=== PATIENT | female | born 1970 | race Caucasian/White ===

== ENCOUNTER → 2021-02-19 16:40 | Outpatient (BNVA) | payer OTHER, SELFPAY | PROVIDERS: Family Provider Nurse Practitioner; PCP Nurse Practitioner; Visit Provider Nurse Practitioner Family | DX: S61.233A Puncture wound without foreign body of left middle finger without damage to nail, initial encounter (principal); X58.XXXA Exposure to other specified factors, initial encounter | CPT/HCPCS: 73140 ==

== ENCOUNTER 2022-10-12 07:09 | Emergency (ER) | payer OTHER, SELFPAY ==
[2022-10-12] VITALS (47 sets, daily range): BP systolic 131–210; BP diastolic 49–107; PULSE 71–102; RESP 13–30; TEMP 37.1; O2SAT 95–99; BMI 32.8
--- NOTE | 2022-10-12 07:38 | CT_ITS ---
WS: [id number] CT HEAD NONCONTRAST HISTORY: new onset dizziness TECHNIQUE: Contiguous axial imaging performed through the brain in 2.5 mm imaging. Bone and soft tiss ue windows. Sagittal and coronal reformats reviewed. All CT scans at [facility] use at least one of these dose optimization techniques: automated exposure control; mA and/or kV adjustment per pa tient size (includes targeted exams where dose is matched to clinical indication); or iterative recon struction. DLP: 994.44 mGy.cm COMPARISON: None available. No acute intracranial hemorrhage, midline shift or mass effect. No significant atrophy. No volume loss or prior infarct. Very mild small vessel ischemic type changes . Ventricles: Normal size with no hydrocephalus. No inferior displacement of cerebellar tonsils. Paranasal sinuses: Very mild mucoperiosteal thickening RIGHT ethmoid air cells. Mastoid air cells: Well pneumatized. Calvarium and scalp: Skull is intact with no soft tissue edema or swelling. CT/CT head wo con* 69500 IMPRESSION: 1. No acute intracranial hemorrhage or edema. 2. Very mild small vessel ischemic disease.
--- NOTE | 2022-10-12 07:41 | ED_ITS ---
HPI - Dizziness General: Chief Complaint: Dizziness Stated Complaint: balance off unable to stand on own Time Seen by Provider: 10/12/22 07:27 Source: patient and family Mode of arrival: wheelchair Limitations: no limitations History of Present Illness: HPI Narrative: Patient presents to the emergency department today brought by her daughter for evaluation treatment of dizziness. Patient reports a sudden onset of dizziness yesterday evening. She states she had to sit down to keep herself from falling. Patient thought she would try and go to bed and noted difficulty getting to her bedroom as she was falling into the hopper and had an ataxic gait. Patient states she did go to sleep but when she woke up this morning, attempted to get out of bed and again was unable to stand or walk due to her dizziness. She called for her daughter who brings her in this morning. Patient is denying chest pains or shortness of breath. She denies any severe headache but feels like the upper part of her neck is sore (like she slept on it wrong . She states she has not been ill recently with any vomiting, diarrhea, or fevers. She does feel her vision is slightly off and daughter feels like the patient's speech is slurred. Patient denies any previous issues with dizziness or vertigo. Patient denies any known previous history of heart disease or stroke. Patient reports she gets wellness checks through her employer and indicated no abnormal findings in her cholesterol or screening examination approximately 6 months ago. Denies chiropractic adjustments. Review of Systems General: Reports: 10 or more systems reviewed and unremarkable except in HPI and below [facility] ED PFSH: Medical History Foreign body of left middle finger Puncture wound of left middle finger Physical Exam HENMT: COMMON NORMALS: normocephalic, atraumatic, hearing grossly normal bilaterally, moist oral mucous membranes and dentition normal HEAD & SCALP: normocephalic and atraumatic Eye: OTHER: PERRLA. EOMs intact. No nystagmus with testing of the EOMs. No reported dizziness with peripheral gaze hold. Neck/C-Spine: OTHER: Patient is demonstrating range of motion independently with her neck without signs of discomfort. She is bringing chin to chest and turns her head side to side on exam. Resp: COMMON NORMALS: normal respiratory effort, No use of accessory muscles and clear to auscultation bilaterally AUSCULTATION: clear to auscultation bilaterally Cardio: COMMON NORMALS: regular rate and regular rhythm RATE: regular rate RHYTHM: regular rhythm OTHER: Patient with acutely elevated blood pressure readings. Patient with BP 200s over 110 while I was in the room. GI: OTHER: Normoactive bowel sounds without tenderness on palpation. Abdomen is soft. Extremity: NARRATIVE EXTREMITY EXAM: Patient is moving her upper and lower extremities independently in the bed however, patient requires assistance with standing and ambulation from wheelchair to the bed upon arrival to her room. Neuro: OTHER: Patient is able to answer her own history. She is concise and appropriate in her responses but, I do agree that the patient's speech sounds slurred-her tongue sounds almost thickened when she talks. Cranial nerves grossly intact with symmetrical smile and midline tongue. Patient had strong and equal wirer helper strength to the upper extremities with equal resistance strength noted. Patient was able to do nose to finger touch without difficulty. Psych: COMMON NORMALS: mental status grossly normal, Normal thought process present, cooperative and normal affect THOUGHT PROCESS: Normal thought p rocess present Course Vital Signs: Vital signs: Vital Signs Temperature 98.7 F 10/12/22 07:24 Pulse Rate 92 10/12/22 11:05 Respiratory Rate 23 H 10/12/22 11:05 Blood Pressure 131/81 10/12/22 11:05 Pulse Oximetry 97 10/12/22 11:05 Oxygen Delivery Me thod Room Air 10/12/22 11:00 MDM - Dizziness Medical Decision Making Upon my initial assessment of the patient I did go speak to Dr. Weeks regarding my concerns for the patient's new onset dizziness, continued dizziness, concern for slurred speech, and elevated blood pressure readings. He recommended proceeding on with CT of the head followed by CTA of the head and neck if head CT is clear and providing a 10 mg dose of labetalol. Patient's blood pressure improved with this medication. CT examination of the head was negative as well as the CTA for concerns of clot or bleeds. Patient's thyroid was found to be enlarged but, TSH was normal. Patient also had 4+ glucose in her urine but no ketones. Patient was given meclizine and, was ambulated in the department with noticeable improvement of ambulation. Discussed with the patient my recommendation for follow-up to discuss her acutely elevated blood pressure readings-this may actually be a chronic thing for her, to discuss her elevated blood sugar levels and 4+ glucose as again, this may be a more chronic issue for her and also referred her on to endocrinology for her enlarged thyroid. Discussed treatment with meclizine for episodes of dizziness but, patient was given very strict return precautions for change or worsening in her condition for which she needs to return to the emergency department immediately. Lab Data 10/12/22 07:45 10/12/22 07:[address] 10/12/22 07:38 IMPRESSION: 1. No acute intracranial hemorrhage or edema. 2. Very mild small vessel ischemic disease. Head/Neck CTA 10/12/22 08:32 IMPRESSION: 1. No significant carotid artery stenosis or plaque. 2. Unremarkable [place] of [place]. 3. Marked bilateral enlarged thyroid. Differential includes multinodular goiter, Graves' disease and Frank's disease. Recommend evaluation by endocrinology. Laboratory Results WBC 10.5 10^3/uL (4.0-10.0) H 10/12/22 07:45 RBC 4.93 10^6/uL (4.1-5.3) 10/12/22 07:45 Hgb 15.7 g/dL (11.5-15.3) H 10/12/22 07:45 Hct 45.1 % (37.0-47.0) 10/12/22 07:45 MCV 91.5 fl (81-99) 10/12/22 07:45 MCH 31.8 pg (28.0-34.0) 10/12/22 07:45 MCHC 34.8 g/dL (30.0-36.0) 10/12/22 07:45 RDW 11.7 % (12.1-15.1) L 10/12/22 07:45 Plt Count 209 10^3/cmm (130-400) 10/12/22 07:45 MPV 9.1 fL (7.4-10.4) 10/12/22 07:45 Neut % (Auto) 79.2 % 10/12/22 07:45 Lymph % (Auto) 13.9 % 10/12/22 07:45 [place] % (Auto) 4.8 % 10/12/22 07:45 Eos % (Auto) 1.0 % 10/12/22 07:45 Baso % (Auto) 0.8 % 10/12/22 07:45 Neut # (Auto) 8.34 10^3/uL (1.8-7.7) H 10/12/22 07:45 Lymph # (Auto) 1.5 10^3/uL (0.8-4.8) 10/12/22 07:45 [place] # (Auto) 0.5 10^3/uL (0.2-0.9) 10/12/22 07:45 Eos # (Auto) 0.1 10^3/uL (0.0-0.8) 10/12/22 07:45 Baso # (Auto) 0.1 10^3/uL (0.0-0.1) 10/12/22 07:45 Nucleated RBC % (auto) 0 % 10/12/22 07:45 Nucleated RBCs # 0.0 /100WBC 10/12/22 07:45 PT 13.10 SECONDS (12.1-14.9) 10/12/22 07:45 INR 0.96 (0.8-1.2) 10/12/22 07:45 APTT 27.7 SECONDS (23.9-36.7) 10/12/22 07:45 Sodium 135 mmol/L (136-145) L 10/12/22 07:45 Potassium 3.9 mmol/L (3.5-5.1) 10/12/22 07:45 Chloride 98 mmol/L (98-107) 10/12/22 07:45 Carbon Dioxide 25 mmol/L (22-29) 10/12/22 07:45 Anion Gap 15.9 (5-19) 10/12/22 07:45 BUN 9 mg/dL (6-20) 10/12/22 07:45 Creatinine 0.6 mg/dL (0.5-0.9) 10/12/22 07:45 GFR Calculation 104.6 mL/min (90-130) 10/12/22 07:45 Glucose 229 mg/dL (65-115) H 10/12/22 07:45 Calculated Osmolality 286 mOsm/kg (285-295) 10/12/22 07:45 Calcium 8.9 mg/dL (8.5-10.5) 10/12/22 07:45 Total Bilirubin 0.3 mg/dL (0.15-1.2) 10/12/22 07:45 AST 16 U/L (0-32) 10/12/22 07:45 ALT 15 U/L (0-33) 10/12/22 07:45 Alkaline Phosphatase 74 U/L (35-105) 10/12/22 07:45 Troponin T Baseline 6 ng/L (0-10) 10/12/22 07:45 Troponin T 120 Minute 6.00 ng/L (0-10) 10/12/22 10:18 Delta Troponin T 0 ABS# (0-10) 10/12/22 10:18 Total Protein 7.4 g/dL (6.6-8.7) 10/12/22 07:45 Albumin 4.4 g/dL (3.5-5.2) 10/12/22 07:45 Globulin 3.0 g/dL (1.3-4.6) 10/12/22 07:45 TSH 3.08 uIU/mL (0.27-4.20) 10/12/22 07:45 Urine Color Straw (Yellow) 10/12/22 08:05 Urine Appearance Clear (CLEAR) 10/12/22 08:05 Urine pH 5 (5-7) 10/12/22 08:05 Ur Specific [place] 1.010 (1.005-1.030) 10/12/22 08:05 Urine Protein Neg (Negative) 10/12/22 08:05 Urine Glucose (UA) 4+ (Normal) H 10/12/22 08:05 Urine Ketones Negative (Negative) 10/12/22 08:05 Urine Blood Neg (Negative) 10/12/22 08:05 Urine Nitrate Negative (Negative) 10/12/22 08:05 Urine Bilirubin Neg (Negative) 10/12/22 08:05 Urine Urobilinogen Norm mg/dL (Negative) 10/12/22 08:05 Ur Leukocyte Esterase Negative (Negative) 10/12/22 08:05 Urine Opiates Screen Positive ng/mL (Negative) H 10/12/22 08:05 Ur Barbiturates Screen Negative ng/mL (Negative) 10/12/22 08:05 Ur Phencyclidine Scrn Negative ng/mL (Negative) 10/12/22 08:05 Ur Amphetamines Screen Negative ng/mL (Negative) 10/12/22 08:05 U Benzodiazepines Scrn Negative ng/mL (Negative) 10/12/22 08:05 Urine Cocaine Screen Negative ng/mL (Negative) 10/12/22 08:05 U Marijuana (THC) Screen Negative ng/mL (Negative) 10/12/22 08:05 Discharge Plan Discharge Patient Disposition: Home Clinical Impression: Dizziness, Elevated blood sugar level, Enlarged thyroid gland, Elevated blood pressure reading without diagnosis of hypertension Condition: Stable Prescriptions: New meclizine 12.5 mg tablet 25 mg PO TID PRN (Reason: dizziness) Qty: 36 0RF Discharge Orders: Discharge ED (Routine); Ordered 10/12/22 Ordered By: Sita Marin Referrals: Janice Whiteside FNP [Primary Care Provider] - Discharge Diet: Usual diet Discharge Activity: Increase activity as tolerated Patient Instructions: Dizziness (ED) Activity Restrictions/Additional Instructions: Your evaluation today included neurological, cardiac, thyroid, infection, and anemic potential causes for your new onset dizziness. We are happy to report that the CT examination including concerns for clot in your brain and carotids was negative today. Cardiac evaluation revealed no acute concerns. The CT examination did find noticeable enlargement of your thyroid gland however, your thyroid hormone is within normal limits at this time. You showed no signs of any infection and no signs of anemia. At this time, we are referring you for follow-up with a primary care doctor as you did present with elevated blood pressure readings and would benefit from continued monitoring of your blood pressure. You also had some elevated blood sugar readings but, would need continued monitoring before a diagnosis of diabetes could be made. I have also referred you on to rheumatology for the enlargement of your thyroid found on the CT scan. At this time, we will treat you with medication to help with dizziness symptoms. Take this medication 3 times a day or as needed throughout the day for symptoms of dizziness. However, you need to return to the emergency department if you develop the most severe headache of your life, loss of visual faust, one-sided facial drooping or one-sided body weakness or numbness, sudden chest pains with or without radiating into the left jaw and arm, or any shortness of breath. Stand Alone Forms: Work/School Release Coding Level of Care Code ED Appellate Conferee for Carrillo Ramsay
--- NOTE | 2022-10-12 07:43 | PC.PHAR ---
pt states she takes no rxs or otc medications
[2022-10-12] MEDS: labetalol 5 mg/mL SDV 20mL 10 MG IVP (07:53)
--- NOTE | 2022-10-12 07:55 | ECG_ITS ---
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 Measurements Intervals [place] Rate: 93 P: 52 ID: [id number] QRS: 19 QRSD: 86 T: 51 QT: 340 QTc: 423 Interpretive Statements SINUS RHYTHM POSSIBLE LEFT ATRIAL ENLARGEMENT [-0.1mV P-WAVE IN V1/V2] No previous ECG available for comparison Electronically Signed On 10-13-2022 0:08:46 CDT by Giovani Cee M.D. [email or web address] g.h. bing, md, cancer [email or web address]/store/OM/[id number]
[2022-10-12 07:58] LABS: Basophils # 0.1 10^3/uL (0.0-0.1); Basophils % 0.8 %; Eosinophils # 0.1 10^3/uL (0.0-0.8); Hematocrit 45.1 % (37.0-47.0); Hemoglobin 15.7 g/dL (11.5-15.3); Lymphocytes # 1.5 10^3/uL (0.8-4.8); Lymphocytes % 13.9 %; Mean Corpuscular HGB Conc 34.8 g/dL (30.0-36.0); Mean Corpuscular Hemoglobin 31.8 pg (28.0-34.0); Mean Corpuscular Volume 91.5 fl (81-99); Mean Platelet Volume 9.1 fL (7.4-10.4); Monocytes # 0.5 10^3/uL (0.2-0.9); Monocytes % 4.8 %; Neutrophils # 8.34 10^3/uL (1.8-7.7); Neutrophils % 79.2 %; Nucleated Red Blood Cells % 0 %; Platelet Count 209 10^3/cmm (130-400); Red Blood Count 4.93 10^6/uL (4.1-5.3); Red Cell Distribution Width 11.7 % (12.1-15.1); White Blood Count 10.5 10^3/uL (4.0-10.0)
[2022-10-12 08:10] LABS: Add Urine Microscopic? NO; Charge for UA Resulting for Rev
[2022-10-12 08:11] LABS: INR 0.96 (0.8-1.2)
[2022-10-12 08:14] LABS: Partial Thromboplastin Time 27.7 SECONDS (23.9-36.7)
[2022-10-12 08:20] LABS: Troponin(5th) Baseline 6 ng/L (0-10)
[2022-10-12 08:30] LABS: Alanine Aminotransferase 15 U/L (0-33); Albumin Level 4.4 g/dL (3.5-5.2); Alkaline Phosphatase 74 U/L (35-105); Anion Gap 15.9 (5-19); Aspartate Amino Transferase 16 U/L (0-32); Blood Urea Nitrogen 9 mg/dL (6-20); Calcium 8.9 mg/dL (8.5-10.5); Carbon Dioxide 25 mmol/L (22-29); Chloride 98 mmol/L (98-107); Glomerular Filtration Rate 104.6 mL/min (90-130); Glucose 229 mg/dL (65-115); Osmolality Calculated 286 mOsm/kg (285-295); Potassium 3.9 mmol/L (3.5-5.1); Sodium 135 mmol/L (136-145); Thyroid Stimulating Hormone 3.08 uIU/mL (0.27-4.20); Total Bilirubin 0.3 mg/dL (0.15-1.2); Total Protein 7.4 g/dL (6.6-8.7)
--- NOTE | 2022-10-12 08:32 | CT_ITS ---
WS: [id number] CT ANGIOGRAM CEREBRAL AND CAROTID ARTERIES HISTORY: dizziness TECHNIQUE: CT angiogram is performed of the carotid and cerebral arteries. During arterial injection imaging is obtained from the skull vertex to the aortic arch in 1.25 mm imaging. Coronal and sagittal reformats are submitted. Additional multi planar reformats of the carotid and cerebral arteries are submitted, MIP imaging also reviewed. NASCET criteria utilized. [facility] at least one of these dose optimization techniques: automated exposure control; mA and/or kV adjust ment per patient size (includes targeted exams where dose is matched to clinical indication); or iter ative reconstruction. CONTRAST: Omnipaque 350; 100 mL IV. DLP: 486.07 mGy.cm COMPARISON: Noncontrast CT head 10/12/2022 Carotid Angiogram: Right carotid: Common carotid artery: Arises normally from the innominate artery. No significant plaque or stenosis. Internal carotid artery: There is a very tiny amount of calcified plaque near the bifurcation. No bernadette rowing of the lumen. No soft plaque or thrombus. External carotid artery: Patent. Left carotid: Common carotid artery: Arises normally from the aorta. No significant plaque or stenosis. Internal carotid artery: No plaque or stenosis. External carotid artery: Patent. Right vertebral artery: Unremarkable. Left vertebral artery: Unremarkable. Arises normally from the subclavian artery. Subclavian arteries: No stenosis or significant abnormality. Upper thorax: Limited by breathing motion artifact. Thyroid gland: Severely enlarged hypervascular thyroid. Diffuse thyroid enlargement of the lobes exte nding over length of 6.6 cm. Osseous structures: Unremarkable. CEREBRAL ANGIOGRAM: Intracranial vertebral arteries: Normal with no significant atherosclerosis. Basilar artery: No significant stenosis or occlusion. No aneurysm. Intracranial Internal carotid arteries: Demonstrates no significant stenosis or plaque. Middle cerebral arteries: Slight paucity of vessels LEFT MCA territory but this is probably normal fo r this patient. There is no thrombus or occlusion identified. The common RIGHT carotid artery also ap pears slightly larger in size than the LEFT. Anterior cerebral arteries and ACOM: Normal. Posterior cerebral arteries and PCOM's: Normal. Asymmetry of the dural venous sinuses. Dominant RIGHT transverse sinus and jugular vein. Small calibe r LEFT jugular vein dural sinus. This is probably normal variant. Superior sagittal sinus is normal. Mastoid air cells: Normal. Paranasal sinuses: RIGHT ethmoid air cell disease, mild. Calvarium: Normal. CT/CT angio headneck* [id number] IMPRESSION: 1. No significant carotid artery stenosis or plaque. 2. Unremarkable [place] of [place]. 3. Marked bilateral enlarged thyroid. Differential includes multinodular goite r, Graves' disease and Frank's disease. Recommend evaluation by endocrinolo gy.
[2022-10-12] MEDS: iohexol 350 mg/mL 500 mL Btl (per mL) IV (08:43)
[2022-10-12 09:15] LABS: Urine Appearance Clear (CLEAR); Urine Color Straw (Yellow)
[2022-10-12 09:16] LABS: Bilirubin Urine Neg (Negative); Blood Urine Neg (Negative); Glucose Urine UA 4+ (Normal); Ketones Urine Negative (Negative); Leukocyte Esterase Urine Negative (Negative); Nitrate Urine Negative (Negative); Protein Urine Neg (Negative); Urobilinogen Urine Norm (Negative); pH Urine 5 (5-7)
[2022-10-12 09:22] LABS: Amphetamines Screen Urine Negative (Negative); Barbiturates Screen Urine Negative (Negative); Benzodiazepines Screen Urine Negative (Negative); Cocaine Screen Urine Negative (Negative); Opiate Screen Urine Positive (Negative); PCP Screen Urine Negative (Negative); THC Screen Urine Negative (Negative)
[2022-10-12] MEDS: meclizine 25 mg tablet 50 MG PO (10:25)
[2022-10-12 11:04] LABS: Troponin 5 2HR Delta 0 ABS# (0-10)
--- NOTE | 2022-10-12 15:22 | DCPLANNER ---
Addendum entered by Nazanin Brower 12/01/22 11:52: This appointment was rescheduled Addendum entered by Nazanin Brower 10/26/22 10:51: Patient has a follow up appointment scheduled for Wednesday, November 23, 2022 at 2:[address] Haines at endocrinology. Original Note: assistant brand manager had message to schedule a follow up appointment for patient with endrocrinology. assistant brand manager sent patients information to the front office staff at endocrinology. Patients information will be printed and reviewed. Clinic will call patient with appointment information.
--- NOTE | 2022-10-13 11:59 | DCPLANNER ---
cosmetic manager had message to speak with patient about getting established with a primary care physician. cosmetic manager called patient, unable to speak with patient at this time.
== END 2022-10-12 11:13 | disposition home or self-care (01) ==
PROVIDERS: Emergency Provider Physician Assistant; Family Provider Nurse Practitioner; PCP Nurse Practitioner
DX: R42 Dizziness and giddiness (principal); R03.0 Elevated blood-pressure reading, without diagnosis of hypertension; E04.9 Nontoxic goiter, unspecified
CPT/HCPCS: 36415; 70450; 70496; 70498; 80053; 80306; 81003; 84443; 84484; 85025; 85610; 85730; 93005; 96374; 99285; J3490; J8597; Q9967

== ENCOUNTER 2022-10-13 07:21 | Inpatient (IN) | payer OTHER, SELFPAY ==
[2022-10-13] VITALS (10 sets, daily range): BP systolic 130–202; BP diastolic 77–111; PULSE 72–88; RESP 16–19; TEMP 36.8–37.1; O2SAT 94–98; BMI 32.2
--- NOTE | 2022-10-13 07:28 | CTR_ITS ---
PROCEDURE INFORMATION: Exam: CT Head Without Contrast Exam date and time: 10/13/2022 7:23 AM Age: 52 years old Clinical indication: Stroke-like symptoms; Headache and speech disturbance; RT upper extremity and RT lower extremity weakness; Additional info: Stroke like symptoms TECHNIQUE: Imaging protocol: Computed tomography of the head without contrast. Total images: 563 Radiation optimization: All CT scans at this facility use at least one of these dose optimization techniques: automated exposure control; mA and/or kV adjustment per patient size (includes targeted exams where dose is matched to clinical indication); or iterative reconstruction. Other technique: STROKE PROTOCOL was implemented. REPORTING DATA: Count of CT and Cardiac NM exams in prior 12 months: This patient has received 2 known CTs and 0 known cardiac nuclear medicine studies in the 12 months prior to the current study. COMPARISON: CT head wo con* [id number] 10/12/2022 8:12 AM RADIATION DOSE METRICS: Total DLP (mGy-cm): 1043.2 FINDINGS: Brain: Normal. No hemorrhage. Unremarkable white matter. No mass effect. Cerebral ventricles: No ventriculomegaly. Paranasal sinuses: Visualized sinuses are unremarkable. No fluid levels. Mastoid air cells: Visualized mastoid air cells are well aerated. Bones/joints: Unremarkable. No acute fracture. Soft tissues: Unremarkable. CT/CT head thrombolytic [id number] IMPRESSION: No acute intracranial abnormality. ASSESSMENT: ASPECTS ([place] Stroke Program Early CT Score) is 10.
[2022-10-13 07:32] LABS: Glucose Point of Care 156 mg/dL (70-110)
--- NOTE | 2022-10-13 07:32 | ECG_ITS ---
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 Measurements Intervals [place] Rate: 73 P: 33 PA: 185 QRS: 7 QRSD: 86 T: 41 QT: 384 QTc: 424 Interpretive Statements SINUS RHYTHM Compared to ECG 10/12/2022 07:55:53 No significant changes Electronically Signed On 10-13-2022 16:53:55 CDT by Remberto Veronica M.D. [id number]
--- NOTE | 2022-10-13 07:35 | W.ED.NEUROSD ---
HPI - Neuro Symptoms/Deficit General: Chief Complaint: Neuro Symptoms/Deficit Stated Complaint: slurred speech, stroke like symptoms Time Seen by Provider: 10/13/22 07:32 Source: patient Mode of arrival: EMS History of Present Illness: 52-year-old female presents emergency room complaining of right-sided weakness dizziness slurring of her words some bit of right-sided facial droop her last known well was midnight last evening she awoke with the symptoms at 5 AM. She was seen yesterday in the emergency room she was not hypertensive at the time her main complaint was dizziness she was evaluated the CT and CTA of the head and neck both of which were negative she is given meclizine she was ambulated without any difficulty. There is no sign of focal stroke and eventually she was discharged from the ER. She was discharged home with meclizine. Today she presents with a different symptoms that and has accelerated hypertension as well. Initial blood pressure was 202/111. She denies chest pain she has some ataxia in the right leg and arm. Her weakness is unusual and testing she will have the ability to raise her arm up against resistance and hold it but then will suddenly drop this is true both the arm and the leg. Onset (ago): hour(s) Time: 07:24 Last Observed Normal: 12:00 Timing confirmed by: family member Location: speech and right face Severity: mild Quality: weak and intermittent Relieving factors: none Exacerbating factors: none Associated symptoms: Deny chest pain, cough, diaphoresis, fevers/chills, headache(s), anorexia, malaise, nausea, seizures, short of breath, syncope, tingling, vertigo, vomiting or weakness Treatments Prior to Arrival: none Review of Systems Const: Denies: fever(s), chills, malaise or diaphoresis Card: Denies: chest pain, palpitations, irregular heart rhythm or syncope GI: Denies: abdominal pain, nausea or vomiting : Denies: dysuria, urinary frequency or urinary urgency Neuro: Denies: headache(s) or vertigo PFS ED PFSH: Medical History (Updated 10/13/22 @ 11:37 by Da Weeks DO) Foreign body of left middle finger Puncture wound of left middle finger Tobacco dependency Social History (Updated 10/13/22 @ 10:46 by Cruzito De La Cruz MD) Smoking and tobacco status: current every day smoker Alcohol intake: never Substance/Drug Use: never NIH stroke score NIHSS: Level Of Consciousness - 1a: 0 Level Of Consciousness Questions - 1b: Both Correct Level Of Consciousness Commands - 1c: Both Correct Best Gaze - 2: Normal Visual [place] - 3: No Visual Loss Facial Palsy - 4: Minor Paralysis Motor Arm Right - 5: No Drift Motor Arm Left - 5: No Drift Motor Leg Right - 6: No Drift Motor Leg Left - 6: No Drift Limb Ataxia - 7: Present In Two Limbs Sensory - 8: Normal Best Language - 9: No Aphasia Dysarthia - 10: Mild/Moderate Dysarthia Extinction And Inattention - 11: 0 Score: Total Score: 4 Physical Exam Const: GENERAL APPEARANCE: cooperative and comfortable ORIENTATION/CONSCIOUSNESS: Yes awake, Yes oriented to person, Yes oriented to place and Yes oriented to time HENMT: COMMON NORMALS: normocephalic, atraumatic and hearing grossly normal bilaterally HEAD & SCALP: normocephalic and atraumatic Resp: COMMON NORMALS: normal respiratory effort, No retractions, No use of accessory muscles and clear to auscultation bilaterally AUSCULTATION: clear to auscultation bilaterally Cardio: COMMON NORMALS: regular rate, regular rhythm and No murmurs present (Cardio) RATE: regular rate RHYTHM: regular rhythm GI: COMMON NORMALS: Soft to palpation and No hepatosplenomegaly present AUSCULTATION: Yes normoactive bowel sounds PALPATION: Yes Soft to palpation, No Tenderness to palpation present (GI), No Guarding due to palpation present (GI) and Yes No hepatosplenomegaly present Extremity: COMMON NORMALS: normal to inspection, capillary refill normal, no clubbing, cyanosis or edema, no calf tenderness and no pedal edema OTHER: When doing NIH scoring patient would raise leg or arm on the right completely up and then it would suddenly drop all the way back to the bed. She was able to sustain it elevated when encouraged. There is no real drift, both limbs of just suddenly dropped back to the bed. She did seem ataxic with both the left arm and leg. And difficulty with [id number]-[id number] and [id number]. Her speech is mildly dysarthric. Neuro: SENSORIUM/ORIENTATION: Yes oriented to person, Yes oriented to place and Yes oriented to time Skin: COMMON NORMALS: no rashes or lesions noted GENERAL SKIN EXAM: no rashes or lesions noted Course Vital Signs: Vital signs: Vital Signs Temperature 98.3 F 10/13/22 07:24 Pulse Rate 83 10/13/22 11:28 Respiratory Rate 18 10/13/22 11:28 Blood Pressure 165/99 10/13/22 11:28 Pulse Oximetry 96 10/13/22 11:28 Oxygen Delivery Me thod Room Air 10/13/22 11:28 MDM - Neuro Symptoms/Deficit Medical Decision Making Dr. Brown seen the patient shortly after arrival back in the department from CT. He scored the patient had a stroke score of 3 I had a 4 difference was I given the patient 1 for some facial droop which when he seen the patient and he did not feel is present. In either event patient is outside the window for tPA there is even some question where the last known well may have actually been 7 PM last night as the patient told Dr. Brown that she had gotten up at midnight and had symptoms at that time. She is not a candidate for embolectomy because she does not have a high enough stroke score. Dr. Brown was worried about a posterior stroke and ultimately did recommend a repeat CTA of the head and neck. 1 was done yesterday as well as a CT with the patient came in we considered posterior stroke at that time but symptoms resolved with meclizine and he had no difficulty walking. Repeat CTA was negative. Will admit for further evaluation discussion with hospitalist consult Dr. Brown. Medical Records I reviewed the patient's medical records. Lab Data I reviewed the patient's lab results. 10/13/22 04:25 10/13/22 08:[address] 10/13/22 07:28 IMPRESSION: No acute intracranial abnormality. ASSESSMENT: ASPECTS ([place] Stroke Program Early CT Score) is 10. Head/Neck CTA 10/13/22 07:49 IMPRESSION: 1. No significant carotid artery stenosis or plaque. No thrombus. 2. No interval change in appearance of the [place] since 10/12/2022. No occlusions or thrombus. 3. Markedly enlarged thyroid as described on the prior study. Correlate for multinodular goiter, Frank's disease or Graves' disease. Laboratory Results WBC 9.0 10^3/uL (4.0-10.0) 10/13/22 04:25 RBC 4.91 10^6/uL (4.1-5.3) 10/13/22 04:25 Hgb 15.6 g/dL (11.5-15.3) H 10/13/22 04:25 Hct 44.9 % (37.0-47.0) 10/13/22 04:25 MCV 91.4 fl (81-99) 10/13/22 04:25 MCH 31.8 pg (28.0-34.0) 10/13/22 04:25 MCHC 34.7 g/dL (30.0-36.0) 10/13/22 04:25 RDW 11.9 % (12.1-15.1) L 10/13/22 04:25 Plt Count 245 10^3/cmm (130-400) 10/13/22 04:25 MPV 9.6 fL (7.4-10.4) 10/13/22 04:25 Neut % (Auto) 66.6 % 10/13/22 04:25 Lymph % (Auto) 24.4 % 10/13/22 04:25 [place] % (Auto) 6.7 % 10/13/22 04:25 Eos % (Auto) 1.3 % 10/13/22 04:25 Baso % (Auto) 0.6 % 10/13/22 04:25 Neut # (Auto) 6.00 10^3/uL (1.8-7.7) 10/13/22 04:25 Lymph # (Auto) 2.2 10^3/uL (0.8-4.8) 10/13/22 04:25 [place] # (Auto) 0.6 10^3/uL (0.2-0.9) 10/13/22 04:25 Eos # (Auto) 0.1 10^3/uL (0.0-0.8) 10/13/22 04:25 Baso # (Auto) 0.1 10^3/uL (0.0-0.1) 10/13/22 04:25 Nucleated RBC % (auto) 0 % 10/13/22 04:25 Nucleated RBCs # 0.0 /100WBC 10/13/22 04:25 PT 13.90 SECONDS (12.1-14.9) 10/13/22 08:22 INR 1.04 (0.8-1.2) 10/13/22 08:22 APTT 28.1 SECONDS (23.9-36.7) 10/13/22 08:22 Sodium 134 mmol/L (136-145) L 10/13/22 08:22 Potassium 4.1 mmol/L (3.5-5.1) 10/13/22 08:22 Chloride 97 mmol/L (98-107) L 10/13/22 08:22 Carbon Dioxide 25 mmol/L (22-29) 10/13/22 08:22 Anion Gap 16.1 (5-19) 10/13/22 08:22 BUN 7 mg/dL (6-20) 10/13/22 08:22 Creatinine 0.6 mg/dL (0.5-0.9) 10/13/22 08:22 GFR Calculation 104.6 mL/min (90-130) 10/13/22 08:22 Glucose 161 mg/dL (65-115) H 10/13/22 08:22 POC Glucose 156 mg/dL (70-110) H 10/13/22 07:29 Estimat Average Glucose 146 10/13/22 04:25 Hemoglobin A1c 6.7 % (4.0-6.0) H 10/13/22 04:25 Calculated Osmolality 279 mOsm/kg (285-295) L 10/13/22 08:22 Calcium 9.1 mg/dL (8.5-10.5) 10/13/22 08:22 Total Bilirubin 0.6 mg/dL (0.15-1.2) 10/13/22 08:22 AST 13 U/L (0-32) 10/13/22 08:22 ALT 14 U/L (0-33) 10/13/22 08:22 Alkaline Phosphatase 65 U/L (35-105) 10/13/22 08:22 Total Protein 6.9 g/dL (6.6-8.7) 10/13/22 08:22 Albumin 4.1 g/dL (3.5-5.2) 10/13/22 08:22 Globulin 2.8 g/dL (1.3-4.6) 10/13/22 08:22 Urine Color Yellow (Yellow) 10/13/22 08:55 Urine Appearance Clear (CLEAR) 10/13/22 08:55 Urine pH 6 (5-7) 10/13/22 08:55 Ur Specific [place] 1.020 (1.005-1.030) 10/13/22 08:55 Urine Protein Neg (Negative) 10/13/22 08:55 Urine Glucose (UA) Norm (Normal) 10/13/22 08:55 Urine Ketones Negative (Negative) 10/13/22 08:55 Urine Blood Neg (Negative) 10/13/22 08:55 Urine Nitrate Negative (Negative) 10/13/22 08:55 Urine Bilirubin Neg (Negative) 10/13/22 08:55 Urine Urobilinogen Norm mg/dL (Negative) 10/13/22 08:55 Ur Leukocyte Esterase Negative (Negative) 10/13/22 08:55 Urine Opiates Screen Positive ng/mL (Negative) H 10/13/22 08:55 Ur Barbiturates Screen Negative ng/mL (Negative) 10/13/22 08:55 Ur Phencyclidine Scrn Negative ng/mL (Negative) 10/13/22 08:55 Ur Amphetamines Screen Negative ng/mL (Negative) 10/13/22 08:55 U Benzodiazepines Scrn Negative ng/mL (Negative) 10/13/22 08:55 Urine Cocaine Screen Negative ng/mL (Negative) 10/13/22 08:55 U Marijuana (THC) Screen Negative ng/mL (Negative) 10/13/22 08:55 Discharge Plan Discharge Patient Disposition: Placed in Observation Clinical Impression: Cerebellar stroke, Elevated blood pressure reading without diagnosis of hypertension Condition: Stable Prescriptions: No Action meclizine 12.5 mg tablet 25 mg PO TID PRN (Reason: dizziness) Qty: 36 0RF Referrals: Janice Whiteside FNP [Primary Care Provider] - Coding Level of Care Code ED Human Resources Benefits Specialist for [facility]
[2022-10-13 07:43] LABS: Basophils # 0.1 10^3/uL (0.0-0.1); Basophils % 0.6 %; Eosinophils # 0.1 10^3/uL (0.0-0.8); Eosinophils % 1.3 %; Hematocrit 44.9 % (37.0-47.0); Hemoglobin 15.6 g/dL (11.5-15.3); Lymphocytes # 2.2 10^3/uL (0.8-4.8); Lymphocytes % 24.4 %; Mean Corpuscular HGB Conc 34.7 g/dL (30.0-36.0); Mean Corpuscular Hemoglobin 31.8 pg (28.0-34.0); Mean Corpuscular Volume 91.4 fl (81-99); Mean Platelet Volume 9.6 fL (7.4-10.4); Monocytes # 0.6 10^3/uL (0.2-0.9); Monocytes % 6.7 %; Neutrophils % 66.6 %; Nucleated Red Blood Cells % 0 %; Platelet Count 245 10^3/cmm (130-400); Red Blood Count 4.91 10^6/uL (4.1-5.3); Red Cell Distribution Width 11.9 % (12.1-15.1)
--- NOTE | 2022-10-13 07:49 | CT_ITS ---
WS: [id number] CT ANGIOGRAM CEREBRAL AND CAROTID ARTERIES HISTORY: CVA - R cerebellar stroke TECHNIQUE: CT angiogram is performed of the carotid and cerebral arteries. During arterial injection imaging is obtained from the skull vertex to the aortic arch in 1.25 mm imaging. Coronal and sagittal reformats are submitted. Additional multi planar reformats of the carotid and cerebral arteries are submitted, MIP imaging also reviewed. NASCET criteria utilized. [facility] CT [facility] at least one of these dose optimization techniques: automated exposure control; mA and/or kV adjust ment per patient size (includes targeted exams where dose is matched to clinical indication); or iter ative reconstruction. CONTRAST: Omnipaque 350; 100 mL IV. DLP: 453.57 mGy.cm COMPARISON: 10/13/[address] head and prior studies CT angiogram 10/12/2022. Carotid Angiogram: Right carotid: Common carotid artery: Arises normally from the innominate artery. No significant plaque or stenosis. Internal carotid artery: Calcified plaque at the bifurcation with no stenosis. External carotid artery: Patent. Left carotid: Common carotid artery: Arises normally from the aorta. No significant plaque or stenosis. Internal carotid artery: No plaque or stenosis. External carotid artery: Patent. Right vertebral artery: Unremarkable. Left vertebral artery: Unremarkable. Arises normally from the subclavian artery. Subclavian arteries: No stenosis or significant abnormality. Upper thorax: Normal. Thyroid gland: Markedly enlarged thyroid reidentified extending substernal as on the prior study. Thi s can be reevaluated by ultrasound on a nonemergent basis. Osseous structures: Unremarkable. CEREBRAL ANGIOGRAM: Intracranial vertebral arteries: Normal with no significant atherosclerosis. Basilar artery: No significant stenosis or occlusion. No aneurysm. Intracranial Internal carotid arteries: Demonstrates no significant stenosis or plaque. Middle cerebral arteries: Normal. Anterior cerebral arteries and ACOM: Normal. Posterior cerebral arteries and PCOM's: Normal. Asymmetric enhancement as on the prior study due to small caliber LEFT transverse sinus. Mastoid air cells: Normal. Paranasal sinuses: Normal. Calvarium: Normal. CT/CT angio headneck* [id number] IMPRESSION: 1. No significant carotid artery stenosis or plaque. No thrombus. 2. No interval change in appearance of the [place] since 10/12/2022. No occlusions or thrombus. 3. Markedly enlarged thyroid as described on the prior study. Correlate for m ultinodular goiter, Frank's disease or Graves' disease.
[2022-10-13] MEDS: labetalol 5 mg/mL SDV 20mL 10 MG IV (07:59)
--- NOTE | 2022-10-13 08:05 | P.CONIM_ITS ---
Providers/Reason For Consult Consulting Physician/Specialty*: Mitchell Brown MD neurology and epilepsy Reason for Consult*: Code stroke ER bed 10 at 7:13 AM with reports patient's ETA was 10 minutes out from the [facility] emergency Primary Care Provider: TARUN Mejias History of Present Illness History of Present Illness Federica Pratt is a 52 year old female with no reported significant past medical history. According to the patient, she was experiencing dizziness yesterday and presented to the [facility] emergency room. Head CT and CT angiogram were obtained and were negative. Patient blood pressure 146/84. The patient was prescribed Antivert and her symptoms abated. Patient was discharged to home. According to the patient, she was resting on her sofa at home and woke up at midnight on 10/12/2022. Patient stated that she was ataxic and could not get herself off of her couch. The family noticed the patient was ataxic with slurred speech somewhere between 5 AM and 7 AM on 10/13/2022. The patient arrived at the [facility] emergency room at 7:20 AM and prior to 7:30 AM on 10/13/2022. In the emergency room bed 10 the patient's NIH score = 3. Patient's blood pressure was significantly elevated 202/111. Repeat head CT, noncontrast on 10/13/2022 revealed no acute findings. Labetalol was ordered by the ER physician. On clinical examination patient was displaying ataxia of the right arm and right leg with dysarthria suggestive of right cerebellar infarction. Repeat CT angiogram has been ordered as well as hypercoagulable lab and patient will be started on aspirin and a hyperlipidemia medication. Past medical history: None Home medications: None Drug allergies: None Habits: Patient has smokes 1 pack/day since she was a teenager. She denied other drug use Review of Systems General: Reports: 10 or more systems reviewed and unremarkable except in HPI and below Neuro: Reports: difficulty walking and other (Ataxia, slurred speech) Medications/Allergies Home Medications Medication Instructions Recorded Confirmed Last Taken Type meclizine 12.5 mg tablet 25 mg PO TID PRN dizziness #36 tabs 10/12/22 Unknown Rx Allergies Allergy/AdvReac Type Severity Reaction Status Date / Time No Known Allergies Allergy Verified 10/13/22 07:33 PFSH Acute PFSH: Medical History Foreign body of left middle finger Puncture wound of left middle finger Vitals/I&O/Wt Last Vital Signs Temp 98.3 F 10/13/22 07:24 Pulse 88 10/13/22 07:24 Resp 18 10/13/22 07:55 BP 201/87 10/13/22 07:55 Pulse Ox 96 10/13/22 07:55 O2 Del Method Room Air 10/13/22 07:55 Weight last 48 hrs Weight 182 lb Physical Exam Narrative: Blood pressure NIH score =3 The patient is alert and oriented x3. Speech is dysarthric. Patient able to follow commands. Head atraumatic. Neck supple. There were no obvious carotid bruits. Cranial nerves II through XII intact with no obvious facial weakness. Pupils 4 mm round reactive to light and accommodation. Extraocular movements intact without nystagmus. There was no facial weakness. Patient was able to protrude her tongue and elevate her palate. Visual faust appeared full via confrontation motor examination 5/5 bilaterally. Patient did display ataxia and on [id number] and bqua-xrdu-[id number] maneuver using the right arm and right leg respectively. Deep tendon reflexes 2+ bilaterally. Plantar responses flexor bilaterally. There was no clonus. Sensory examination was intact to gross modalities, and there was no extinction on double sensory stimulation. Throat clear. Lungs clear. Heart regular rhythm and rate extremities were negative for clubbing or cyanosis or edema. Data 10/13/22 04:25 10/13/22 04:25 A&P Assessment and plan (1) Cerebellar stroke: (2) Elevated blood pressure reading without diagnosis of hypertension: Plan Assessment: 1. Code stroke on 10/13/2022 patient's last known well could not be determined since the patient reports that she woke up at midnight on 10/12/2022 and was atax ic and could not get off of her couch. Therefore patient was not a candidate for tPA and no tPA was administered 2. Clinical examination suggestive of a right cerebellar infarction 3. Uncontrolled hypertension blood pressure Plan: 1. Hypercoagulable lab (ordered by me in the emergency room) 2. Recommend aspirin 325 mg p.o. every morning first dose now 3. Recommend starting a cholesterol-lowering agent (Lipitor or Crestor or Zocor) 4. Agree with addressing blood pressure 5. Recommend occupational therapy, physical therapy and speech therapy consults 6. Fall precautions 7. Agree with inpatient admission to [facility] 8. Recommend repeat CT angiogram of the head and neck to assess for thrombus and to determine if the patient is a candidate for thrombectomy Consult Attestations Medical Necessity Statement: Patient was evaluated by neurology for code stroke bed 10 on 10/13/2022 and clinical findings suggestive of right cerebellar infarction Coding Level of Care Code 31980 Diagnoses Cerebellar stroke I63.9 Elevated blood pressure reading without diagnosis of hypertension R03.0 Time Spent (min) 40
[2022-10-13 08:43] LABS: INR 1.04 (0.8-1.2)
[2022-10-13 08:44] LABS: Partial Thromboplastin Time 28.1 SECONDS (23.9-36.7)
[2022-10-13 08:49] LABS: Alanine Aminotransferase 14 U/L (0-33); Albumin Level 4.1 g/dL (3.5-5.2); Alkaline Phosphatase 65 U/L (35-105); Anion Gap 16.1 (5-19); Aspartate Amino Transferase 13 U/L (0-32); Blood Urea Nitrogen 7 mg/dL (6-20); Calcium 9.1 mg/dL (8.5-10.5); Carbon Dioxide 25 mmol/L (22-29); Chloride 97 mmol/L (98-107); Globulin 2.8 g/dL (1.3-4.6); Glomerular Filtration Rate 104.6 mL/min (90-130); Glucose 161 mg/dL (65-115); Osmolality Calculated 279 mOsm/kg (285-295); Potassium 4.1 mmol/L (3.5-5.1); Sodium 134 mmol/L (136-145); Total Bilirubin 0.6 mg/dL (0.15-1.2); Total Protein 6.9 g/dL (6.6-8.7)
[2022-10-13 09:07] LABS: Add Urine Microscopic? NO; Charge for UA Resulting for Rev
[2022-10-13 09:11] LABS: Bilirubin Urine Neg (Negative); Blood Urine Neg (Negative); Glucose Urine UA Norm (Normal); Ketones Urine Negative (Negative); Leukocyte Esterase Urine Negative (Negative); Nitrate Urine Negative (Negative); Protein Urine Neg (Negative); Urine Appearance Clear (CLEAR); Urine Color Yellow (Yellow); Urobilinogen Urine Norm (Negative); pH Urine 6 (5-7)
[2022-10-13 09:19] LABS: Amphetamines Screen Urine Negative (Negative); Barbiturates Screen Urine Negative (Negative); Benzodiazepines Screen Urine Negative (Negative); Cocaine Screen Urine Negative (Negative); Opiate Screen Urine Positive (Negative); PCP Screen Urine Negative (Negative); THC Screen Urine Negative (Negative)
--- NOTE | 2022-10-13 10:41 | PM.HP ---
Providers/Chief Complaint Admitting Physician: Cruzito De La Cruz MD, hospitalist Primary Care Provider: TARUN Mejias Chief Complaint: slurred speech, stroke like symptoms History of Present Illness Federica Pratt is a 52 year old female who is presenting from home with complaints of dizziness since Wednesday. She reported she has had trouble with coordination, and being able to walk appropriately without assistance and supervision. She came to the emergency department yesterday, and had no focal weakness at that time. After CT and CTA was performed, she was discharged home. She presents today with complaints of slurred speech, and right-sided weakness. She reports she has a mild headache. Some nausea but no vomiting. She denies any prior history of CVA. She has not had any fevers, cough. She reports her only medications written recently had been an antibiotic and some hydrocodone for an abscessed tooth right upper gum. She reports that is better. In the emergency department stroke alert was called. NIHSS score was 3-4 depending upon provider. She was not deemed to be a candidate for tPA secondary to timing of deficit and score. Review of Systems General: Reports: 10 or more systems reviewed and unremarkable except in HPI and below Const: Denies: fever(s) Card: Denies: chest pain Resp: Denies: dyspnea GI: Reports: nausea; Denies: abdominal pain, vomiting, hematochezia or melena Musc: Denies: neck pain or back pain Neuro: Reports: headache(s) and weakness in extremities (Right upper and right lower) Medications/Allergies Home Medications Medication Instructions Recorded Confirmed Last Taken Type meclizine 12.5 mg tablet 25 mg PO TID PRN dizziness #36 tabs 10/12/22 10/13/22 Unknown Rx Allergies Allergy/AdvReac Type Severity Reaction Status Date / Time No Known Allergies Allergy Verified 10/13/22 10:05 PFSH Acute PFSH: Medical History (Updated 10/13/22 @ 10:45 by Cruzito De La Cruz MD) Foreign body of left middle finger Puncture wound of left middle finger Tobacco dependency Social History (Updated 10/13/22 @ 10:46 by Cruzito De La Cruz MD) Smoking and tobacco status: current every day smoker Alcohol intake: never Substance/Drug Use: never Other PFSH information: Supplemental PFSH Information: Reports mother had Parkinson's disease. Denies any significant surgeries Vitals/I&O/Wt Last Vital Signs Temp 98.3 F 10/13/22 07:24 Pulse 81 10/13/22 10:02 Resp 18 10/13/22 10:02 BP 139/86 10/13/22 10:02 Pulse Ox 95 10/13/22 10:02 O2 Del Method Room Air 10/13/22 10:02 Weight last 48 hrs Weight 82.554 kg Physical Exam Narrative: General exam is a white female, with slurred speech and right facial droop who gives an adequate history HEENT: Atraumatic and normocephalic. Pupils equally round. Oropharynx clear. Neck is supple no lymphadenopathy thyromegaly Cardiovascular regular rate and rhythm without murmur, no S3 or S4 Lungs clear no wheezing or crackles Abdomen is soft with positive bowel sounds. No obvious organomegaly exams deferred Extremities no sinus clubbing or edema, cap refill brisk Skin no rash Neuro right facial droop is noted. Slurred speech is noted. Right upper and lower extremity with some breakaway weakness but does have significant ataxia/drift. See multiple exams done previously. No obvious visual field cuts. Data 10/13/22 04:25 10/13/22 08:22 Other Labs: PT and PTT are normal LFTs are normal Urinalysis negative Urine drug screen positive for opiates otherwise negative Recent TSH was normal CTA of head and neck demonstrate no thrombus, enlarged thyroid, no significant plaque Head CT noncontrast no abnormality. I reviewed this as well Chest x-ray ordered EKG demonstrates sinus rhythm, normal axis, no acute changes. Possible left atrial enlargement. I reviewed this personally. A&P Assessment and plan (1) Cerebellar stroke: Patient presents with symptoms of cerebellar stroke. Initiate aspirin, statin Lipid profile in the morning Check echocardiogram Continue to monitor telemetry Appreciate neurology consultation. Consider addition of Plavix to aspirin after review of MRI Aspirin will be given today. Therapy consultations Permissive hypertension in the first 24 hours, then may initiate some low-dose blood pressure medication. Treat blood pressure if greater than 220/120 Coagulation work-up per neurology (2) Tobacco dependency: Encourage abstinence (3) Elevated blood sugar level: Check hemoglobin A1c Consistent carb diet if elevated, sliding scale insulin (4) Elevated blood pressure reading without diagnosis of hypertension: Continue to monitor blood pressures Plan Full code Lovenox for DVT prophylaxis Attestations Medical Necessity Statement*: Will need greater than 2 midnight stay for evaluation and treatment of cerebellar CVA Diagnoses Cerebellar stroke I63.9 Tobacco dependency F17.200 Elevated blood sugar level R73.9 Elevated blood pressure reading without diagnosis of hypertension R03.0 Time Spent (min) 63
--- NOTE | 2022-10-13 10:48 | XRR_ITS ---
PROCEDURE INFORMATION: Exam: XR Chest Exam date and time: 10/13/2022 11:00 AM Age: 52 years old Clinical indication: Other: Slurred speech, ; additional info: CVA TECHNIQUE: Imaging protocol: Radiologic exam of the chest. Views: 1 view. COMPARISON: CT angio headneck* [id number] 10/13/2022 8:34 AM FINDINGS: Lungs: Unremarkable. No consolidation. Pleural spaces: Unremarkable. No pleural effusion. No pneumothorax. Heart/Mediastinum: Unremarkable. No cardiomegaly. Bones/joints: Unremarkable. XR/XR chest 1V portable [id number] IMPRESSION: No acute findings.
[2022-10-13 11:22] LABS: Estmated Average Glucose 146; Hemoglobin A1C 6.7 % (4.0-6.0)
[2022-10-13] MEDS: aspirin 81 mg Chew Tablet 324 MG PO (11:24)
[2022-10-13 11:35] LABS: Homocysteine 12.03
--- NOTE | 2022-10-13 13:57 | USCV_ITS ---
Federica Pratt Age: 52 Gender: F : 1970 Exam Date: 10/13/2022 15:10 Ordering Phys: Cruzito De La Cruz MD Technologist: Jl Mora [place] [facility] [place]ication: CVA BP: 127 / 73 HR: 82 Rhythm: Sinus Technical Quality: Adequate MEASUREMENTS (Male / Female) Normal Values 2D ECHO LV Diastolic Diameter PLAX 3.7 cm 4.2 - 5.9 / 3.9 - 5.3 cm LV Systolic Diameter PLAX 2.4 cm IVS Diastolic Thickness 1.4 cm 0.6 - 1.0 / 0.6 - 0.9 cm IVS Systolic Thickness 1.5 cm LVPW Diastolic Thickness 1.1 cm 0.6 - 1.0 / 0.6 - 0.9 cm LVPW Systolic Thickness 1.4 cm LVOT Diameter 2.1 cm LV Ejection Fraction 2D Teich 63.6 % LV Ejection Fraction MOD 2C 68.7 % LV Ejection Fraction 2C AL 69.2 % LA Diameter 3.1 cm IVC Diameter 1.4 cm M-MODE Aortic Annulus Diameter 2.9 cm LA Ao Ratio MM 1.1 MV E Point Septal Separation 1.0 cm DOPPLER AV Peak Velocity 153.0 cm/s LVOT Peak Velocity 129.0 cm/s AV Area Cont Eq vti 3.1 cm squared AV Area Cont Eq pk 2.9 cm squared MV Area PHT 5.0 cm squared Mitral E to A Ratio 0.7 MV E' Velocity 47.5 cm/s Mitral E to MV E' Ratio 10.7 Mitral E to LV E' Lateral Ratio 10.1 Mitral E to LV E' Septal Ratio 11.6 TR Peak Velocity 143.7 cm/s TR Peak Gradient 8.3 mmHg TV Peak E Velocity 95.0 cm/s Right Atrial Pressure 3.0 mmHg Pulmonary Artery Systolic Pressu 11.3 mmHg RV Acceleration Time 0.1 s FINDINGS Left Ventricle Left ventricle is normal in size. LV systolic function is normal with EF of 55-60%. No regional wall motion abnormalities. Grade 1 diastolic dysfunction Right Ventricle Normal in size and function Right Atrium Normal in size Left Atrium Normal in size Mitral Valve Structurally normal mitral valve. Aortic Valve Structurally normal aortic valve. No significant stenosis or regurgitation. Tricuspid Valve Mild tricuspid regurgitation. Pulmonary artery systolic pressure is normal Pulmonic Valve Not well visualized Pericardium Normal Aorta Normal in size IVC Appears to be normal CONCLUSIONS LV systolic function is normal with EF 55 to 60%. Grade 1 diastolic dysfunction Mild tricuspid regurgitation No comparison studies are available Remberto Veronica MD (Electronically Signed) Final Date: 14 Oct 2022 11:45 S
[2022-10-13] MEDS: sodium chloride 0.9% 1,000 ML 75 ML IV (15:55)
[2022-10-13] MEDS: enoxaparin 40 mg/0.4 mL Syringe SUBCUT (15:56)
[2022-10-13 16:51] LABS: Glucose Point of Care 154 mg/dL (70-110)
[2022-10-13] MEDS: atorvastatin 40 mg Tablet PO (19:53)
[2022-10-14 02:39] LABS: Chol HDL Ratio 5.03 mg/dL (0.0-4.40); Cholesterol 196 mg/dL (0-200); HDL Cholesterol 39 mg/dL (60-100); LDL Cholesterol Calculated 105 mg/dL (50-129); LDL HDL Ratio 2.69 RATIO (0.00-3.22); Triglycerides 260 mg/dL (0-150)
[2022-10-14] MEDS: sodium chloride 0.9% 1,000 ML 75 ML IV (04:08)
[2022-10-14 04:10] VITALS: BP 179/84; PULSE 78; RESP 19; TEMP 36.8; O2SAT 95
--- NOTE | 2022-10-14 07:10 | P.PN_ITS ---
Subjective Subjective: Patient reports speech seems better. Right upper extremity still very clumsy. Right lower extremity she believes is functioning better. No chest pain, headache, or nausea. Medications: Reviewed: Yes Vitals/I&O/Wt Last Vital Signs Temp 98.3 F 10/14/22 04:10 Pulse 78 10/14/22 04:10 Resp 19 H 10/14/22 04:10 BP 179/84 10/14/22 04:10 Pulse Ox 95 10/14/22 04:10 O2 Del Method Room Air 10/13/22 17:22 10/13/22 10/14/22 10/14/22 22:59 06:59 14:59 Intake Total 913.75 / 913.75 Output Total 350 / 350 Balance 563.75 / 563.75 Weight last 48 hrs Weight 82.554 kg Weight 82.554 kg Physical Exam Narrative: General exam no distress Neurologic: Speech still slurred. Major deficit is cerebellar dysfunction right upper and right lower extremity. Right upper extremity is affected more. S peech may be a little clear. No issues with strength of the upper or lower extremity Neck is supple no lymphadenopathy thyromegaly Cardiovascular regular rate and rhythm without murmur, no S3 or S4 Lungs clear no wheezing or crackles Abdomen is soft with positive bowel sounds. Extremities no sinus clubbing or edema, cap refill brisk Skin no rash Data 10/13/22 04:25 10/13/22 08:22 A&P Assessment and plan (1) Cerebellar stroke: Patient presents with symptoms of cerebellar stroke. Continue aspirin, statin Await echocardiogram Continue telemetry Appreciate neurology consultation. Consider addition of Plavix to aspirin after review of MRI MRI today Therapy consultations to determine safety of going home and medical equipment needed She has had symptoms since Wednesday. We will go ahead and initiate low-dose ARB today Reduce IV fluids Coagulation work-up per neurology (2) Tobacco dependency: Encourage abstinence (3) Elevated blood sugar level: Hemoglobin A1c elevated Consistent carb diet Consider metformin at discharge (4) Elevated blood pressure reading without diagnosis of hypertension: I suspect blood pressure has been high long-term She is now probably 4 days out from symptom start. Initiate losartan 25 mg daily. This will have beneficial effects considering she also has a diagnosis of diabetes now. Plan Full code Lovenox for DVT prophylaxis Attestations Medical Necessity Statement*: Needs continued hospital stay for further evaluation of stroke with therapy evaluations, MRI. Diagnoses Cerebellar stroke I63.9 Tobacco dependency F17.200 Elevated blood sugar level R73.9 Elevated blood pressure reading without diagnosis of hypertension R03.0 Time Spent (min) 24
--- NOTE | 2022-10-14 07:25 | PM.PN ---
Subjective Subjective: Federica Pratt is a 52 year old female with no reported significant past medical history.? According to the patient, she was experiencing dizziness on 10/12/2022 and presented to the [facility] emergency room.? Head CT and CT angiogram were obtained and were negative.? Patient blood pressure 146/84.? The patient was prescribed Antivert and her symptoms abated.? Patient was discharged to home.? According to the patient, she was resting on her sofa at home and woke up at midnight on 10/12/2022.? Patient stated that she was ataxic and could not get herself off of her couch.? The family noticed the patient was ataxic with slurred speech somewhere between 5 AM and 7 AM on 10/13/2022.? The patient arrived at the [facility] emergency room at 7:20 AM and I arrived at the ER at 7:30 AM on 10/13/2022. In the emergency room bed 10 the patient's NIH score = 3.? Patient's blood pressure was significantly elevated 202/111.? Repeat head CT, noncontrast on 10/13/2022 revealed no acute findings.? Repeat CT angiogram performed on 10/13/2022 revealed no acute findings and no thrombosis. Labetalol was ordered by the ER physician.? On clinical examination patient was displaying ataxia of the right arm and right leg with dysarthria suggestive of right cerebellar infarction.? Hypercoagulable lab and noncontrast head MRI were ordered and the patient was started on aspirin 325 mg p.o. daily and Lipitor 40 mg p.o. at bedtime. This morning, the patient reports feeling better. She still has some ataxia in the right arm and right leg. She still has some dysarthria but her speech has also improved. We are awaiting the head MRI which is scheduled to be performed today on 10/14/2022. We will follow-up hypercoagulable lab results. Past medical history: None Home medications: None Drug allergies: None Habits: Patient has smokes 1 pack/day since she was a teenager.? She denied other drug use. Potential health risks of smoking was discussed with the patient and the patient is aware of the potential health risks associated with smoking and voiced understanding. Review of systems: Patient reports dysarthria and clumsiness of the right arm and right leg but improving. Patient denies headaches, neck pain, facial numbness, visual difficulty, swallowing difficulty, chest pain, shortness of breath, abdominal pain or extremity pain Vitals/I&O/Wt Last Vital Signs Temp 98.3 F 10/14/22 04:10 Pulse 78 10/14/22 04:10 Resp 19 H 10/14/22 04:10 BP 179/84 10/14/22 04:10 Pulse Ox 95 10/14/22 04:10 O2 Del Method Room Air 10/13/22 17:22 10/13/22 10/14/22 10/14/22 22:59 06:59 14:59 Intake Total 913.75 / 913.75 Output Total 350 / 350 Balance 563.75 / 563.75 Weight last 48 hrs Weight 182 lb Weight 182 lb Physical Exam Narrative: The patient is alert and oriented x3.? Speech is dysarthric.? Patient able to follow commands.? Head atraumatic.? Neck supple.? There were no obvious carotid bruits.? Cranial nerves II through XII intact with no obvious facial weakness.? Pupils 4 mm round reactive to light and accommodation.? Extraocular movements intact without nystagmus.? There was no facial weakness.? Patient was able to protrude her tongue and elevate her palate.? Visual faust appeared full via confrontation motor examination 5/5 bilaterally.? Patient did display ataxia and on [id number] and hetj-lzsa-[id number] maneuver using the right arm and right leg respectively.? Deep tendon reflexes 2+ bilaterally.? Plantar responses flexor bilaterally.? There was no clonus.? Sensory examination was intact to gross modalities, and there was no extinction on double sensory stimulation.? Throat clear.? Lungs clear.? Heart regular rhythm and rate extremities were negative for clubbing or cyanosis or edema. Data 10/13/22 04:25 10/13/22 08:22 A&P Assessment and plan (1) Cerebellar stroke: (2) Cerebellar ataxia: Plan Assessment: 1.? Code stroke on 10/13/2022 patient's last known well could not be determined since the patient reports that she woke up at midnight on 10/12/2022 and was ataxic and could not get off of her couch.? Therefore patient was not a candidate for tPA and no tPA was administered 2.? Clinical examination suggestive of a right cerebellar infarction, improving 3.? Uncontrolled hypertension blood pressure 202/111 on admission Plan: 1.? Hypercoagulable lab (ordered by me in the emergency room) 2.? Continue aspirin 325 mg p.o. every morning and Lipitor 40 mg p.o. q. evening for stroke protocol 3.? Agree with addressing high blood pressure 5.? Recommend occupational therapy, physical therapy and speech therapy consults 6.? Fall precautions 7.? Awaiting noncontrast head MRI scheduled to be performed 10/14/2022 8. Follow-up results of hypercoagulable lab Attestations Medical Necessity Statement*: The patient was evaluated by neurology for code stroke initiated on 10/13/2022 suggestive of right cerebellar infarction, acute Coding Level of Care Code 34150 Diagnoses Cerebellar stroke I63.9 Cerebellar ataxia G11.9
[2022-10-14 07:27] VITALS: BP 167/77; PULSE 80; RESP 16; TEMP 36.6; O2SAT 95
[2022-10-14 08:19] VITALS: BP 167/77
[2022-10-14] MEDS: losartan 50 mg Tablet 25 MG PO (08:19)
[2022-10-14] MEDS: aspirin 325 mg Tablet PO (08:19)
--- NOTE | 2022-10-14 09:30 | MR_ITS ---
WS: [id number] MRI HEAD WITHOUT CONTRAST TECHNIQUE: Sagittal T1, T2 axial, T2 axial FLAIR, axial and coronal T1 images, axial susceptibility w eighted imaging, axial diffusion weighted images, and coronal T2 images were obtained. CLINICAL INFORMATION: CVA COMPARISON: None. FINDINGS: Area of wedge-shaped restricted diffusion involving the LEFT johana-jacky measuring 10.5 x 9.8 mm consis tent with acute ischemia. Mild associated edema. No significant mass effect. No hydrocephalus. No german dence of hemorrhage. No hemosiderin on susceptibly weighted images. Mild small vessel changes. No sig nificant parenchymal volume loss. Normal posterior fossa. Normal vascular flow voids at the skull base. No extra-axial fluid collection s. No evidence of mass or mass effect. Mild mucosal thickening in the paranasal sinuses. Mastoid air cells are well aerated. Normal optic chiasm and pituitary infundibulum. Normal posterior nasopharynx and parapharyngeal fat. MR/MR head wo con* [id number] IMPRESSION: 1. Acute ischemia in the LEFT hemipons measuring 10.5 x 9.8 mm. Mild associate d edema. No significant mass effect. 2. Mild small vessel changes. No significant parenchymal volume loss. 3. Mild mucosal thickening in the paranasal sinuses. 4. No other suspicious findings. Notified Cruzito De La Cruz MD at 10/14/2022 1:43 PM.
[2022-10-14 11:10] VITALS: BP 159/74; PULSE 77; RESP 15; TEMP 36.6; O2SAT 95
--- NOTE | 2022-10-14 13:58 | P.DS_ITS ---
Discharge Providers Date of Admission: 10/13/22 10:52 Date of Discharge: October 14, 2022 Attending Provider at Admission: Cruzito De La Cruz MD Attending Provider at Discharge: Cruzito De La Cruz MD Primary Care Provider: TARUN Mejias Diagnoses at Discharge Discharge Diagnosis (1) Cerebellar stroke: Status: Acute (2) Cerebellar ataxia: Status: Acute (3) Hyperlipidemia: Status: Acute (4) Type 2 diabetes mellitus: Status: Acute (5) Hypertension: Status: Acute Reason for Visit Reason for Visit: slurred speech, stroke like symptoms Brief History: History as per HPI: Federica Pratt is a 52 year old female who is presenting from home with complaints of dizziness since Wednesday.? She reported she has had trouble with coordination, and being able to walk appropriately without assistance and supervision.? She came to the emergency department yesterday, and had no focal weakness at that time.? After CT and CTA was performed, she was discharged home.? She presents today with complaints of slurred speech, and right-sided weakness.? She reports she has a mild headache.? Some nausea but no vomiting.? She denies any prior history of CVA.? She has not had any fevers, cough.? She reports her only medications written recently had been an antibiotic and some hydrocodone for an abscessed tooth right upper gum.? She reports that is better. In the emergency department stroke alert was called.? NIHSS score was 3-4 depending upon provider.? She was not deemed to be a candidate for tPA secondary to timing of deficit and score. Hospital Course Hospital Course Patient was admitted to the hospital further evaluation and management of acute stroke. Neurology was consulted who requested for patient to have an MRI. Patient was seen by PT/OT and speech therapy during hospitalization and they recommended for outpatient therapy. MRI was done which was consistent with acute left hemipons ischemia. During hospitalization she was found to be having hyperlipidemia and type 2 diabetes mellitus. She has been discharged hemodynamically stable condition on adjusted medications. She is to take full dose aspirin, 40 mg of atorvastatin, losartan 25 mg and Januvia 100 mg daily going forward. She is to check her blood pressure daily at home and maintain a blood pressure diary. She is to have a repeat A1c in 6 months. She is to follow-up with her primary care provider within next 1 week and with the neurologist within next 2 weeks. Need for multiple new medications were discussed in detail with the patient and all the questions were answered. Goal blood pressure and A1c was discussed in detail with the patient. She verbalized understanding. Physical Exam Narrative: General exam no distress Neurologic: Speech still slurred. Major deficit is cerebellar dysfunction right upper and right lower extremity. Right upper extremity is affected more. Speech may be a little clear. No issues with strength of the upper or lower extremity Neck is supple no lymphadenopathy thyromegaly Cardiovascular regular rate and rhythm without murmur, no S3 or S4 Lungs clear no wheezing or crackles Abdomen is soft with positive bowel sounds. Extremities no sinus clubbing or edema, cap refill brisk Skin no rash Discharge Data Studies Completed and Pending Completed Studies During Hospitalization Category Date Time Status CT head thrombolytic [id number] Stat Cat Scan 10/13/22 07:28 Completed CTA head neck [CT angio headneck* [id number]] Stat Cat Scan 10/13/22 07:49 Completed XR chest 1V portable [id number] Stat Exams 10/13/22 10:48 Completed MR head wo con* [id number] Routine MRI 10/14/22 09:30 Completed CV. echo complete* [id number] Routine Ultrasound 10/13/22 13:57 Completed Pending at discharge Category Date Time Status Antithrombin III Activity Routine Lab 10/13/22 12:10 Received BMP [Basic Metabolic Panel] AM LABS Lab 10/15/22 04:00 Ordered Beta 2 Glycoprotein I IGA AB Routine Lab 10/13/22 12:10 Received CARDIOLIPIN AB (IGA,IGG,IGM) Routine Lab 10/13/22 12:10 Received CBC Auto Diff [Complete Blood Count w/Auto] AM LABS Lab 10/15/22 04:00 Ordered Factor 5 Leiden Mutation Routine Lab 10/13/22 12:10 Received Lupus Inhibitor Panel Anticoag Routine Lab 10/13/22 12:10 Received PROTEIN C, ACTIVITY Routine Lab 10/13/22 10:57 Received PROTEIN S, ACTIVITY Routine Lab 10/13/22 12:10 Received PROTHROMBIN GENE [PROTHROMBIN (FACTOR II) [id number]] Lab 10/13/22 12:10 Received Routine Radiology Impressions Head CT 10/13/22 07:28 IMPRESSION: No acute intracranial abnormality. ASSESSMENT: ASPECTS (Georgette Stroke Program Early CT Score) is 10. Head/Neck CTA 10/13/22 07:49 IMPRESSION: 1. No significant carotid artery stenosis or plaque. No thrombus. 2. No interval change in appearance of the [place] since 10/12/2022. No occlusions or thrombus. 3. Markedly enlarged thyroid as described on the prior study. Correlate for multinodular goiter, Frank's disease or Graves' disease. Chest X-Ray 10/13/22 10:48 IMPRESSION: No acute findings. Head MRI 10/14/22 09:30 IMPRESSION: 1. Acute ischemia in the LEFT hemipons measuring 10.5 x 9.8 mm. Mild associated edema. No significant mass effect. 2. Mild small vessel changes. No significant parenchymal volume loss. 3. Mild mucosal thickening in the paranasal sinuses. 4. No other suspicious findings. Notified Cruzito De La Cruz MD at 10/14/2022 1:43 PM. Laboratory Results WBC 9.0 10^3/uL (4.0-10.0) 10/13/22 04:25 RBC 4.91 10^6/uL (4.1-5.3) 10/13/22 04:25 Hgb 15.6 g/dL (11.5-15.3) H 10/13/22 04:25 Hct 44.9 % (37.0-47.0) 10/13/22 04:25 MCV 91.4 fl (81-99) 10/13/22 04:25 MCH 31.8 pg (28.0-34.0) 10/13/22 04:25 MCHC 34.7 g/dL (30.0-36.0) 10/13/22 04:25 RDW 11.9 % (12.1-15.1) L 10/13/22 04:25 Plt Count 245 10^3/cmm (130-400) 10/13/22 04:25 MPV 9.6 fL (7.4-10.4) 10/13/22 04:25 Neut % (Auto) 66.6 % 10/13/22 04:25 Lymph % (Auto) 24.4 % 10/13/22 04:25 Taylor % (Auto) 6.7 % 10/13/22 04:25 Eos % (Auto) 1.3 % 10/13/22 04:25 Baso % (Auto) 0.6 % 10/13/22 04:25 Neut # (Auto) 6.00 10^3/uL (1.8-7.7) 10/13/22 04:25 Lymph # (Auto) 2.2 10^3/uL (0.8-4.8) 10/13/22 04:25 Taylor # (Auto) 0.6 10^3/uL (0.2-0.9) 10/13/22 04:25 Eos # (Auto) 0.1 10^3/uL (0.0-0.8) 10/13/22 04:25 Baso # (Auto) 0.1 10^3/uL (0.0-0.1) 10/13/22 04:25 Nucleated RBC % (auto) 0 % 10/13/22 04:25 Nucleated RBCs # 0.0 /100WBC 10/13/22 04:25 PT 13.90 SECONDS (12.1-14.9) 10/13/22 08:22 INR 1.04 (0.8-1.2) 10/13/22 08:22 APTT 28.1 SECONDS (23.9-36.7) 10/13/22 08:22 Sodium 134 mmol/L (136-145) L 10/13/22 08:22 Potassium 4.1 mmol/L (3.5-5.1) 10/13/22 08:22 Chloride 97 mmol/L (98-107) L 10/13/22 08:22 Carbon Dioxide 25 mmol/L (22-29) 10/13/22 08:22 Anion Gap 16.1 (5-19) 10/13/22 08:22 BUN 7 mg/dL (6-20) 10/13/22 08:22 Creatinine 0.6 mg/dL (0.5-0.9) 10/13/22 08:22 GFR Calculation 104.6 mL/min (90-130) 10/13/22 08:22 Glucose 161 mg/dL (65-115) H 10/13/22 08:22 POC Glucose 154 mg/dL (70-110) H 10/13/22 16:47 Estimat Average Glucose 146 10/13/22 04:25 Hemoglobin A1c 6.7 % (4.0-6.0) H 10/13/22 04:25 Calculated Osmolality 279 mOsm/kg (285-295) L 10/13/22 08:22 Calcium 9.1 mg/dL (8.5-10.5) 10/13/22 08:22 Total Bilirubin 0.6 mg/dL (0.15-1.2) 10/13/22 08:22 AST 13 U/L (0-32) 10/13/22 08:22 ALT 14 U/L (0-33) 10/13/22 08:22 Alkaline Phosphatase 65 U/L (35-105) 10/13/22 08:22 Total Protein 6.9 g/dL (6.6-8.7) 10/13/22 08:22 Albumin 4.1 g/dL (3.5-5.2) 10/13/22 08:22 Globulin 2.8 g/dL (1.3-4.6) 10/13/22 08:22 Triglycerides 260 mg/dL (0-150) H 10/14/22 02:01 Cholesterol 196 mg/dL (0-200) 10/14/22 02:01 LDL Cholesterol, Calc 105 mg/dL (50-129) 10/14/22 02:01 HDL Cholesterol 39 mg/dL (60-100) L 10/14/22 02:01 LDL/HDL Ratio 2.69 RATIO (0.00-3.22) 10/14/22 02:01 Cholesterol/HDL Ratio 5.03 mg/dL (0.0-4.40) H 10/14/22 02:01 Homocysteine 12.03 10/13/22 08:22 Urine Color Yellow (Yellow) 10/13/22 08:55 Urine Appearance Clear (CLEAR) 10/13/22 08:55 Urine pH 6 (5-7) 10/13/22 08:55 Ur Specific [place] 1.020 (1.005-1.030) 10/13/22 08:55 Urine Protein Neg (Negative) 10/13/22 08:55 Urine Glucose (UA) Norm (Normal) 10/13/22 08:55 Urine Ketones Negative (Negative) 10/13/22 08:55 Urine Blood Neg (Negative) 10/13/22 08:55 Urine Nitrate Negative (Negative) 10/13/22 08:55 Urine Bilirubin Neg (Negative) 10/13/22 08:55 Urine Urobilinogen Norm mg/dL (Negative) 10/13/22 08:55 Ur Leukocyte Esterase Negative (Negative) 10/13/22 08:55 Urine Opiates Screen Positive ng/mL (Negative) H 10/13/22 08:55 Ur Barbiturates Screen Negative ng/mL (Negative) 10/13/22 08:55 Ur Phencyclidine Scrn Negative ng/mL (Negative) 10/13/22 08:55 Ur Amphetamines Screen Negative ng/mL (Negative) 10/13/22 08:55 U Benzodiazepines Scrn Negative ng/mL (Negative) 10/13/22 08:55 Urine Cocaine Screen Negative ng/mL (Negative) 10/13/22 08:55 U Marijuana (THC) Screen Negative ng/mL (Negative) 10/13/22 08:55 Vitals Last Vital Signs Temp 97.8 F 10/14/22 11:10 Pulse 77 10/14/22 11:10 Resp 15 10/14/22 11:10 BP 159/74 10/14/22 11:10 Pulse Ox 95 10/14/22 11:10 O2 Del Method Room Air 10/14/22 11:10 Discharge Plan Discharge Patient Disposition: Home Condition: Stable Prescriptions: New aspirin 325 mg Tablet 325 mg PO DAILY Qty: 30 0RF atorvastatin 40 mg Tablet 40 mg PO BEDTIME Qty: 30 0RF losartan 50 mg Tablet 25 mg PO DAILY 30 Days Qty: 15 0RF Januvia 100 mg tablet 100 mg PO DAILY Qty: 30 0RF Continued meclizine 12.5 mg tablet 25 mg PO TID PRN (Reason: dizziness) Qty: 36 0RF Discharge Orders: Discharge Order (Routine); Ordered 10/14/22 Ordered By: Dave Hull Other Ambulatory Orders: Occupational Therapy Eval and Treat Outpatient (Order) Timeframe: 2 Days Facility: [facility] - Location: Occupational Therapy [place] Ordered By: Dave Hull Physical Therapy Eval and Treat Outpatient (Order) Timeframe: 2 Days Facility: [facility] - Location: Physical Therapy [place] Ordered By: Dave Hull Speech Language Pathology Eval and Treat Outpatient (Order) Timeframe: 2 Days Facility: [facility] - Location: OT & CEMENT OR [employer] [place] Ordered By: Dave Hull Referrals: Janice Whiteside FNP [Primary Care Provider] - 7-10 days Mitchell Brown MD [Physician] - 2 weeks Discharge Diet: Cardiac and Diabetic Discharge Activity: Resume usual activity and Increase activity as tolerated Patient Instructions: Opioid Safety Activity Restrictions/Additional Instructions: Multiple medication changes have been done. Please take full dose aspirin, 40 mg of atorvastatin, losartan 25 mg and Januvia 100 mg daily going forward. Losartan is the blood pressure medication and Januvia is diabetes medication. Atorvastatin is a cholesterol medication. Check your blood pressure daily at home and maintain a blood pressure diary. Should repeat A1c in 6 months. Follow-up with primary care provider within next 1 week and with the neurologist within next 2 weeks. Discharge Attestations Time Spent in Discharge Care*: greater than 30 min Specific Discharge Activities: educating patient, discussing with pcp/other providers, discussing with shoe caser/social workers/dc planners, documenting/other paperwork and evaluating patient/reviewing data Time Spent in Smoking Cessation: more than 10 minutes Status at Discharge: Cognitive status at discharge: cognitively intact , Behavioral status at discharge: cooperative , Functional status at discharge: uses cane/walker , Overall status at discharge: patient has a new baseline Quality Metrics Clinical Quality Measures [ No reported AMI, CVA or VTE this stay] Coding Level of Care Code 12125 Total time (in minutes) for Discharge: 60 Diagnoses Cerebellar stroke I63.9 Cerebellar ataxia G11.9 Hyperlipidemia E78.5 Type 2 diabetes mellitus E11.9 Hypertension I10
[2022-10-14 15:35] VITALS: BP 192/83; PULSE 87; RESP 17; TEMP 36.8; O2SAT 96
[2022-10-14 17:30] VITALS: BP 192/83; PULSE 87; RESP 17; TEMP 36.8; O2SAT 96
[2022-10-14 19:44] LABS: PTT-LA-Screen 33 sec (< OR = 40)
[2022-10-16 01:50] LABS: Beta 2 Glycoprotein I IGA AB <2.0 U/mL; CARDIOLIPIN AB (IGA) <2.0 APL-U/mL; CARDIOLIPIN AB (IGG) <2.0 GPL-U/mL; CARDIOLIPIN AB (IGM) <2.0 MPL-U/mL
[2022-10-17 06:55] LABS: Antithrombin III Activity 127 % normal (80-135)
[2022-10-17 23:35] LABS: Factor 5 Leiden Mutation NEGATIVE
[2022-10-17 23:45] LABS: PROTEIN S, ACTIVITY 122 % normal (60-140)
[2022-10-18 22:35] LABS: PROTHROMBIN (FACTOR II) 20210G NEGATIVE
[2022-10-21 06:15] LABS: PROTEIN C, ACTIVITY 144 % normal (70-180)
== END 2022-10-14 17:31 | disposition home or self-care (01) | DRG 65 ==
LOC: ER 12:22 → MEDSURG 13:19
PROVIDERS: Admitting Provider Internal Medicine; Emergency Provider Family Medicine; Family Provider Student in an Organized Health Care Education/Training Program; PCP Nurse Practitioner; Visit Provider Internal Medicine
DX: I63.9 Cerebral infarction, unspecified (principal); G81.91 Hemiplegia, unspecified affecting right dominant side; R27.0 Ataxia, unspecified; R47.1 Dysarthria and anarthria; R29.704 NIHSS score 4; E78.5 Hyperlipidemia, unspecified; E11.9 Type 2 diabetes mellitus without complications; I10 Essential (primary) hypertension; F17.200 Nicotine dependence, unspecified, uncomplicated
CPT/HCPCS: 36415; 36416; 70450; 70496; 70498; 70551; 71045; 80053; 80061; 80306; 81003; 81241; 82962; 83036; 83090; 85025; 85210; 85300; 85303; 85306; 85610; 85613; 85730; 86146; 86147; 92507; 92523; 92526; 92610; 93005; 93306; 96372; 96374; 97110; 97161; 97165; 99285; J1650; J3490; J7030

== ENCOUNTER 2022-10-20 06:00 | Outpatient (RCR) | payer OTHER, SELFPAY | END 2022-10-28 23:59 | disposition home or self-care (01) | LOC: WR3 06:00 | PROVIDERS: Visit Provider Student in an Organized Health Care Education/Training Program | DX: I63.9 Cerebral infarction, unspecified (principal) | CPT/HCPCS: 92507; 92523; 97110; 97112; 97140; 97162; 97530 ==

== ENCOUNTER 2022-10-29 06:00 | Outpatient (RCR) | payer OTHER, SELFPAY | END 2022-11-27 23:59 | disposition home or self-care (01) | LOC: WR3 06:00 | PROVIDERS: Visit Provider Student in an Organized Health Care Education/Training Program | DX: I63.9 Cerebral infarction, unspecified (principal) | CPT/HCPCS: 92507; 97110; 97112; 97116; 97530 ==

== ENCOUNTER 2022-12-18 15:45 | Outpatient (RCR) | payer OTHER, SELFPAY | END 2022-12-28 23:59 | disposition home or self-care (01) | LOC: WR3 15:45 | PROVIDERS: Visit Provider Student in an Organized Health Care Education/Training Program | DX: I63.9 Cerebral infarction, unspecified (principal) | CPT/HCPCS: 97110; 97112; 97166; 97530 ==

== ENCOUNTER 2022-12-29 06:00 | Outpatient (RCR) | payer OTHER, SELFPAY | END 2023-01-28 23:59 | disposition home or self-care (01) | LOC: WR3 06:00 | PROVIDERS: PCP Nurse Practitioner; Visit Provider Student in an Organized Health Care Education/Training Program | DX: I63.9 Cerebral infarction, unspecified (principal) | CPT/HCPCS: 97110; 97112; 97530; 97535 ==

== ENCOUNTER → 2024-09-04 16:18 | Outpatient (BNVA) | payer SELFPAY | PROVIDERS: PCP Nurse Practitioner Family; Visit Provider Nurse Practitioner Family | DX: E55.9 Vitamin D deficiency, unspecified (principal); I10 Essential (primary) hypertension; E78.2 Mixed hyperlipidemia; E11.9 Type 2 diabetes mellitus without complications; Z79.899 Other long term (current) drug therapy | CPT/HCPCS: 80053; 80061; 81003; 82306; 83036; 84439; 84443; 84481; 85025; 86376; 87086 ==